=== PATIENT | female | born 1990 | race Caucasian/White ===

== ENCOUNTER 2021-10-07 16:23 | Outpatient (CLI) | payer OTHER | END 2021-10-07 18:06 | disposition home or self-care (01) | LOC: OBS/DEL 16:23 → NST 16:23 | PROVIDERS: ATTEND Obstetrics & Gynecology | DX: Z34.83 Encounter for supervision of other normal pregnancy, third trimester (principal) ==

== ENCOUNTER 2021-10-18 14:45 | Inpatient (IN) | payer OTHER ==
[~2021-10-18] VITALS: Ht 157.5 cm; Wt 68.0 kg
== END 2021-11-05 12:31 | disposition home or self-care (01) | DRG 768 ==
LOC: LDR 11-03 07:41 → OB/GYN 11-03 17:23
PROVIDERS: ADMIT Obstetrics & Gynecology; ATTEND Obstetrics & Gynecology
PROC: 10E0XZZ Delivery of Products of Conception, External Approach (ICD-10-PCS; principal; 2021-11-03)
PROC: 0UBC7ZZ Excision of Cervix, Via Natural or Artificial Opening (ICD-10-PCS; 2021-11-03)
PROC: 0W8NXZZ Division of Female Perineum, External Approach (ICD-10-PCS; 2021-11-03)
PROC: 4A1HXCZ Monitoring of Products of Conception, Cardiac Rate, External Approach (ICD-10-PCS; 2021-11-03)
PROC: 0HQ9XZZ Repair Perineum Skin, External Approach (ICD-10-PCS; 2021-11-03)
DX: O70.1 Second degree perineal laceration during delivery (principal); Z37.0 Single live birth; Z3A.39 39 weeks gestation of pregnancy; Z20.822 Contact with and (suspected) exposure to COVID-19; O26.893 Other specified pregnancy related conditions, third trimester; N84.0 Polyp of corpus uteri

== ENCOUNTER 2021-11-01 15:56 | Outpatient (CLI) | payer OTHER | END 2021-11-01 17:09 | disposition home or self-care (01) | LOC: NST 15:56 | PROVIDERS: ATTEND Obstetrics & Gynecology Maternal & Fetal Medicine | DX: Z34.83 Encounter for supervision of other normal pregnancy, third trimester (principal) ==